=== PATIENT | female | born 1980 | race Caucasian/White ===

== ENCOUNTER 2024-06-20 10:09 | Emergency (ER) | payer MEDICAID ==
[~2024-06-20] VITALS: Ht 167.6 cm; Wt 54.4 kg
[2024-06-20 10:10] VITALS: BP_SYST 121; PULSE 78; RESP 18; TEMP 97.4; O2SAT 98
[2024-06-20 10:15] VITALS: BP_SYST 108; PULSE 90; RESP 18; TEMP 97.3; O2SAT 98
[2024-06-20] MEDS: IPRATROPIUM/ALBUTEROL SULFATE 3 ML AMPUL.NEB (DUONEB) INH ONE (10:35)
[2024-06-20] MEDS ORDERED: ALBMDI INH (12:01)
[2024-06-20] MEDS ORDERED: PRED20TA PO (12:01)
[2024-06-20 12:12] VITALS: BP_SYST 104; PULSE 82; RESP 16; TEMP 97.7; O2SAT 98
== END 2024-06-20 12:11 | disposition home or self-care (01) ==
LOC: SED 10:09
DX: R07.81 Pleurodynia (principal)
CPT/HCPCS: 71045; 93005; 94640; 94760; 99283

== ENCOUNTER 2024-06-22 18:22 | Emergency (ER) | payer MEDICAID ==
[~2024-06-22] VITALS: Ht 167.6 cm; Wt 56.7 kg
[~2024-06-22 18:22] MED LIST: ALBMDI INH; PRED20TA PO
[2024-06-22 18:27] VITALS: BP_SYST 139; PULSE 95; RESP 18; TEMP 98.3; O2SAT 98
[2024-06-22 19:09] LABS: BASOPHILS # (AUTO) 0.1 K/uL (0.0-0.2); BASOPHILS % (AUTO) 0.7 % (0.0-2.0); EOSINOPHILS # (AUTO) 0.8 K/uL (0.0-0.4); EOSINOPHILS % (AUTO) 8.1 % (0.0-4.0); HEMATOCRIT 35.6 % (36-48); HEMOGLOBIN 12.2 g/dL (12.0-16.0); LYMPHOCYTES # (AUTO) 2.3 K/uL (1.0-5.5); LYMPHOCYTES % (AUTO) 23.5 % (20.5-51.5); MEAN CORPUSCULAR HEMOGLOBIN 30 pg (27-31); MEAN CORPUSCULAR HGB CONC 34 % (32-36); MEAN CORPUSCULAR VOLUME 88 fL (79.0-98.0); MONOCYTES # (AUTO) 0.7 K/uL (0.0-1.0); MONOCYTES % (AUTO) 6.8 % (1.7-9.3); NEUTROPHILS # (AUTO) 5.9 K/uL (1.8-7.7); NEUTROPHILS % (AUTO) 60.9 % (40.0-70.0); PLATELET COUNT (AUTO) 285 K/uL (130-430); RED BLOOD CELL COUNT(AUTO) 4.05 MIL/uL (4.2-6.2); RED CELL DISTRIBUTION WIDTH 14.3 % (9.0-15.0); WHITE BLOOD COUNT (AUTO) 9.7 K/uL (4.8-10.8)
[2024-06-22 19:19] LABS: CALCIUM 8.7 mg/dL (8.4-11.0); CREATININE 0.66 mg/dL (0.55-1.30); POTASSIUM 4.2 mmol/L (3.5-5.1)
[2024-06-22] MEDS: NACL 0.9% 1,000 ML IV ONE (19:34)
[2024-06-22] MEDS ORDERED: PHENYTOIN SODIUM 250 MG/5 ML INJ. VIAL IV ONE (19:43)
[2024-06-22] MEDS: PHENYTOIN SODIUM INJ 1,000 MG in NS 100 ML IV ONE (19:45)
[2024-06-22] MEDS ORDERED: PHEN100C4 PO (20:52)
[2024-06-22 20:55] VITALS: BP_SYST 100; PULSE 85; RESP 15; TEMP 97.8; O2SAT 100
== END 2024-06-22 20:55 | disposition home or self-care (01) ==
LOC: SED 18:22
DX: G40.802 Other epilepsy, not intractable, without status epilepticus (principal); R51.9 Headache, unspecified; Z79.899 Other long term (current) drug therapy; Z79.2 Long term (current) use of antibiotics; Z79.52 Long term (current) use of systemic steroids
CPT/HCPCS: 99284; 96365; 80048; 85025; 36415; J1165